=== PATIENT | female | born 1980 | race Hispanic/Latino ===

== ENCOUNTER 2018-12-23 16:54 | Emergency (ER) | payer SELFPAY ==
[~2018-12-23] VITALS: Ht 157.5 cm; Wt 62.6 kg
[2018-12-23] MEDS ORDERED: SODIUM CHLORIDE 0.9% 1000ML 1,000 ML IV SCH (17:30)
[2018-12-23] MEDS ORDERED: AUGMENTIN 875-1 EACH PO (17:34)
[2018-12-23 17:35] LABS: BASOPHILS % 0.6 % (0.0-1.0); EOSINOPHILS # (AUTO) 0.1 (0.0-0.4); HEMATOCRIT 37.2 % (34.2-44.1); LYMPHOCYTES % 28.2 % (18.0-39.1); MEAN CORPUSCULAR HEMOGLOBIN 28.3 pg (28-32); MEAN CORPUSCULAR HGB CONC 32.3 g/dL (31-35); MEAN CORPUSCULAR VOLUME 87.7 fL (81-99); MONOCYTES # (AUTO) 0.4 (0.2-0.8); MONOCYTES % 5.6 % (4.4-11.3); NEUTROPHILS # (AUTO) 4.5 (2.1-6.9); PLATELET COUNT 270 x10e3/uL (140-360); RED BLOOD COUNT 4.24 x10e6/uL (3.6-5.1); RED CELL DISTRIBUTION WIDTH 12.2 % (11.7-14.4)
[2018-12-23 17:48] LABS: ALANINE AMINOTRANSFERASE 42 IU/L (0-55); ALBUMIN 3.8 g/dL (3.5-5.0); ALBUMIN/GLOBULIN RATIO 1.2 (0.8-2.0); ALKALINE PHOSPHATASE 66 IU/L (40-150); ANION GAP 12.5 mmol/L (8-16); BLOOD UREA NITROGEN 14 mg/dL (7-26); BUN/CREATININE RATIO 19 (6-25); CARBON DIOXIDE 27 mmol/L (22-29); CHLORIDE 101 mmol/L (98-107); CREATININE, SERUM 0.72 mg/dL (0.57-1.11); EST GLOMERULAR FILTRATION RATE > 60 ML/MIN (60-); GLUCOSE 103 mg/dL (74-118); POTASSIUM 3.5 mmol/L (3.5-5.1); SODIUM 137 mmol/L (136-145)
[2018-12-23] MEDS ORDERED: FAMOTIDINE 20 MG/2 ML VIAL IV ONE (18:00)
[2018-12-23] MEDS ORDERED: KETOROLAC TROMETHAMINE 30 MG/ML VIAL IV ONE (18:00)
[2018-12-23 18:14] LABS: BILIRUBIN,URINE NEGATIVE (NEGATIVE); CLARITY,URINE SL CLOUDY (CLEAR); COLOR,URINE YELLOW (YELLOW); KETONES,URINE NEGATIVE (NEGATIVE); LEUKOCYTE ESTERASE ,URINE NEGATIVE (NEGATIVE); NITRITE,URINE NEGATIVE (NEGATIVE); PROTEIN,URINE DIPSTICK NEGATIVE (NEGATIVE); URINE UROBILINOGEN 0.2 mg/dL (0.2 - 1)
[2018-12-23 18:16] LABS: PREGNANCY TEST, URINE NEGATIVE (NEGATIVE)
[2018-12-23 18:18] LABS: BACTERIA,URINE FEW /HPF; EPITHELIAL CELLS,URINE FEW /LPF; RBC,URINE 0-5 /HPF (0-5); WBC,URINE (MAN) 0-5 /HPF (0-5)
[2018-12-23 19:16] VITALS: BP 107/78
== END 2018-12-23 19:29 | disposition home or self-care (01) ==
LOC: ER 16:54
DX: R10.11 Right upper quadrant pain (principal)
CPT/HCPCS: 36415; 80053; 81001; 81025; 83690; 85025; 99283; J1885; J7030